=== PATIENT | male | born 1980 | race African-American/Black ===

== ENCOUNTER 2022-12-24 07:05 | Observation (INO) | payer BC, OTHER ==
[2022-12-24] MEDS ORDERED: ONDANSETRON 4 MG/2 ML VIAL IVPUSH ONE (08:04)
[2022-12-24] MEDS ORDERED: FAMOTIDINE 20 MG/50 ML IVPB 20 MG/50 ML MG IVPB ONE ×2 (08:04→08:44)
[2022-12-24] MEDS ORDERED: ONDANSETRON 4 MG/2 ML VIAL ONE (08:44)
[2022-12-24 09:19] LABS: HEMATOCRIT 58.1 % (35.4-49); HEMOGLOBIN 19.1 G/dL (11.7-16.9); MCH 29.6 pg (25.7-33.7); MCHC 32.9 g/dl (32.0-35.9); MEAN CELL VOLUME 90.1 fl (80-96); PLATELET COUNT 344.8 10^3/uL (134-434); RBC 6.45 10^6/uL (4.00-5.60); WHITE BLOOD COUNT 17.9 10^3/uL (4.0-10.8)
[2022-12-24] MEDS ORDERED: SODIUM CHLORIDE 1,000 ML IV STA ×2 (09:20→10:29)
[2022-12-24 09:27] LABS: ADD RBC MORPHOLOGY YES
[2022-12-24 10:20] LABS: VENOUS BASE EXCESS -2.2 mmol/L (-2-2); VENOUS O2 SATURATION 86.9 % (70-80); VENOUS PCO2 38.2 mmHg (38-52); VENOUS PH 7.383 (7.310-7.410)
[2022-12-24 10:23] LABS: POTASSIUM 3.9 mmol/L (3.5-5.1)
[2022-12-24 10:25] LABS: BLOOD UREA NITROGEN 26.3 mg/dL (7-18); CALCIUM 8.6 mg/dL (8.5-10.1)
[2022-12-24 10:26] LABS: ALBUMIN 3.2 g/dl (3.4-5.0)
[2022-12-24 10:28] LABS: CREATININE 2.8 mg/dL (0.55-1.3)
[2022-12-24] MEDS ORDERED: ACETAMINOPHEN 325 MG TABLET (FP) PO ONE (10:29)
[2022-12-24 10:36] LABS: PLATELET ESTIMATE ADEQUATE
[2022-12-24] MEDS ORDERED: ACETAMINOPHEN 325 MG TABLET (FP) ONE (10:59)
[2022-12-24] MEDS ORDERED: HALOPERIDOL LACTATE 5 MG/ML IM ONE ×2 (14:03→14:29)
[2022-12-24 14:34] LABS: HEMATOCRIT 54.1 % (35.4-49); HEMOGLOBIN 17.4 G/dL (11.7-16.9); MCH 29.3 pg (25.7-33.7); MCHC 32.2 g/dl (32.0-35.9); MEAN PLT VOLUME 8.7 fl (7.5-11.1); PLATELET COUNT 328.1 10^3/uL (134-434); RBC 5.94 10^6/uL (4.00-5.60); RDW 15.2 % (11.9-15.9)
[2022-12-24 15:09] LABS: PLATELET ESTIMATE ADEQUATE
[2022-12-24 15:10] LABS: EPITHELIAL CELLS RARE /hpf
[2022-12-24 15:11] LABS: URINE HYALINE CAST 0-3 /lpf
[2022-12-24 15:47] LABS: POTASSIUM 3.8 mmol/L (3.5-5.1)
[2022-12-24 15:49] LABS: ALBUMIN 2.7 g/dl (3.4-5.0); BLOOD UREA NITROGEN 26.7 mg/dL (7-18); CALCIUM 7.7 mg/dL (8.5-10.1)
[2022-12-24 15:52] LABS: CREATININE 2.4 mg/dL (0.55-1.3)
[2022-12-24 15:54] LABS: BILIRUBIN,TOTAL 0.6 mg/dL (0.2-1); TOT PROT 5.9 g/dl (6.4-8.2)
[2022-12-24] MEDS ORDERED: LACTATED RINGERS SOLUTION 1,000 ML/1,000 ML INFUS.BAG IV STA (16:12)
[2022-12-24] MEDS ORDERED: ONDANSETRON 4 MG/2 ML VIAL IVPUSH PRN (16:27)
[2022-12-24 18:14] VITALS: BMI 27.3
[2022-12-24] MEDS: LACTATED RINGERS SOLUTION 1,000 ML IV SCH (18:20)
[2022-12-24] MEDS ORDERED: TRIMETHOBENZAMIDE HCL 200MG/2ML INJ IM PRN (21:51)
[2022-12-24] MEDS: ATORVASTATIN CA 40 MG TABLET (FP) PO SCH (22:23)
[2022-12-25] MEDS: INSULIN SLIDING SCALE (NOVOLOG) 1 VIAL SQ SCH ×4 (06:17→21:27)
[2022-12-25] MEDS: ACETAMINOPHEN 325 MG TABLET (FP) PO PRN (06:27)
[2022-12-25 09:07] LABS: POTASSIUM 4.1 mmol/L (3.5-5.1)
[2022-12-25 09:09] LABS: BLOOD UREA NITROGEN 24.5 mg/dL (7-18); CALCIUM 8.2 mg/dL (8.5-10.1)
[2022-12-25 09:10] LABS: MAGNESIUM 1.9 mg/dL (1.8-2.4)
[2022-12-25 09:13] LABS: CREATININE 2.1 mg/dL (0.55-1.3); PHOSPHOROUS 3.2 mg/dL (2.5-4.9)
[2022-12-25] MEDS ORDERED: hydrALAZINE HCL 20 MG/ML VIAL IVPUSH ONE (09:15)
[2022-12-25 09:16] LABS: BASO % 0.3 % (0-2.0); EOS % 0.6 % (0-4.5); HEMATOCRIT 52.2 % (35.4-49); HEMOGLOBIN 16.8 GM/dL (11.7-16.9); LYMPH % 17.5 % (8-40); MCH 28.9 pg (25.7-33.7); MCHC 32.2 g/dl (32.0-35.9); MEAN CELL VOLUME 89.7 fl (80-96); MEAN PLT VOLUME 8.5 fl (7.5-11.1); MONO % 5.6 % (3.8-10.2); PLATELET COUNT 377 10^3/uL (134-434); RBC 5.82 M/mm3 (4.00-5.60); RDW 14.9 % (11.9-15.9); WHITE BLOOD COUNT 15.4 K/mm3 (4.0-10.0)
[2022-12-25] MEDS ORDERED: PANTOPRAZOLE SODIUM 40 MG VIAL IVPUSH ONE (09:16)
[2022-12-25] MEDS: HEPARIN NA (PORCINE) 5,000 UNITS/ML 1ML VIAL SQ SCH ×2 (09:37→21:26)
[2022-12-25] MEDS ORDERED: NIFEdipine 10 MG CAPSULE (FP) PO SCH (10:00)
[2022-12-25] MEDS ORDERED: PANTOPRAZOLE 40 MG TABLET PO SCH (10:00)
[2022-12-25] MEDS ORDERED: NIFEdipine E.R 60 MG TABLET PO SCH (11:15)
[2022-12-25] MEDS ORDERED: hydrALAZINE HCL 20 MG/ML VIAL IM PRN (12:48)
[2022-12-25] MEDS: LACTATED RINGERS SOLUTION 1,000 ML IV SCH (18:38)
[2022-12-25] MEDS: ATORVASTATIN CA 40 MG TABLET (FP) PO SCH (21:26)
[2022-12-25] MEDS: MELATONIN 5 MG TABLETS PO PRN (21:35)
[2022-12-26] MEDS: INSULIN SLIDING SCALE (NOVOLOG) 1 VIAL SQ SCH ×3 (06:47→21:27)
[2022-12-26 07:57] LABS: HEMATOCRIT 49.7 % (35.4-49); HEMOGLOBIN 16.8 GM/dL (11.7-16.9); MCH 29.5 pg (25.7-33.7); MCHC 33.8 g/dl (32.0-35.9); MEAN CELL VOLUME 87.3 fl (80-96); MEAN PLT VOLUME 8.7 fl (7.5-11.1); PLATELET COUNT 366 10^3/uL (134-434); RBC 5.69 M/mm3 (4.00-5.60); RDW 14.7 % (11.9-15.9); WHITE BLOOD COUNT 14.1 K/mm3 (4.0-10.0)
[2022-12-26] MEDS ORDERED: SODIUM CHLORIDE 500 ML IV STA (08:42)
[2022-12-26 09:09] LABS: BLOOD UREA NITROGEN 26.5 mg/dL (7-18); CALCIUM 8.2 mg/dL (8.5-10.1); CREATININE 2.3 mg/dL (0.55-1.3); POTASSIUM 3.7 mmol/L (3.5-5.1)
[2022-12-26] MEDS: PANTOPRAZOLE 40 MG TABLET PO SCH (10:13)
[2022-12-26] MEDS: HEPARIN NA (PORCINE) 5,000 UNITS/ML 1ML VIAL SQ SCH ×2 (10:14→21:26)
[2022-12-26] MEDS: METOPROLOL TARTRATE 50 MG TABLET (FP) PO SCH ×2 (10:14→21:27)
[2022-12-26 14:53] LABS: MAGNESIUM 1.9 mg/dL (1.8-2.4)
[2022-12-26 14:56] LABS: BILIRUBIN,DIRECT 0.2 mg/dL (0.0-0.2)
[2022-12-26 14:58] LABS: BILIRUBIN,TOTAL 0.9 mg/dL (0.2-1)
[2022-12-26] MEDS: ATORVASTATIN CA 40 MG TABLET (FP) PO SCH (21:26)
[2022-12-26] MEDS: MELATONIN 5 MG TABLETS PO PRN (21:26)
[2022-12-26] MEDS: ACETAMINOPHEN 325 MG TABLET (FP) PO PRN (21:27)
[2022-12-27] MEDS: LACTATED RINGERS SOLUTION 1,000 ML IV SCH (01:00)
[2022-12-27] MEDS: INSULIN SLIDING SCALE (NOVOLOG) 1 VIAL SQ SCH (06:52)
[2022-12-27] MEDS ORDERED: METOCLOPRAMIDE HCL 10 MG TABLET (FP) PO ONE (09:30)
[2022-12-27 09:36] VITALS: BP 148/98; PULSE 92; RESP 18; TEMP 98
[2022-12-27] MEDS: PANTOPRAZOLE 40 MG TABLET PO SCH (09:36)
[2022-12-27] MEDS: HEPARIN NA (PORCINE) 5,000 UNITS/ML 1ML VIAL SQ SCH (09:37)
[2022-12-27] MEDS: METOPROLOL TARTRATE 50 MG TABLET (FP) PO SCH (09:37)
== END 2022-12-27 09:52 | disposition home or self-care (01) ==
LOC: FER 07:05 → INTOOBSV 16:24 → FM/S 16:24
PROVIDERS: ADMIT Internal Medicine
PROC: 3E033GC Introduction of Other Therapeutic Substance into Peripheral Vein, Percutaneous Approach (ICD-10-PCS; principal; 2022-12-24)
PROC: 3E013VG Introduction of Insulin into Subcutaneous Tissue, Percutaneous Approach (ICD-10-PCS; 2022-12-24)
PROC: 3E0233Z Introduction of Anti-inflammatory into Muscle, Percutaneous Approach (ICD-10-PCS; 2022-12-24)
PROC: 3E033GC Introduction of Other Therapeutic Substance into Peripheral Vein, Percutaneous Approach (ICD-10-PCS; 2022-12-24)
PROC: 3E0337Z Introduction of Electrolytic and Water Balance Substance into Peripheral Vein, Percutaneous Approach (ICD-10-PCS; 2022-12-24)
DX: N17.9 Acute kidney failure, unspecified (principal); E11.9 Type 2 diabetes mellitus without complications; R80.9 Proteinuria, unspecified; N20.0 Calculus of kidney; I10 Essential (primary) hypertension; E86.0 Dehydration; R11.10 Vomiting, unspecified; R94.8 Abnormal results of function studies of other organs and systems; Z86.16 Personal history of COVID-19; Z72.0 Tobacco use
CPT/HCPCS: 36415; 71046-TC-FY; 74176-TC; 76775-TC; 80048; 80053; 80076; 81003; 81015; 82272; 82550; 82803; 82962; 83036; 83690; 83735; 84100; 84156; 84300; 84443; 85025; 85027; 85651; 86140; 86704; 87086; 87340; 87522; 93005; 99285-25; G0378; J1644

== ENCOUNTER 2024-01-08 04:57 | Observation (INO) | payer BC, OTHER ==
[2024-01-08] MEDS ORDERED: KETOROLAC TROMETHAMINE 30 MG/1 ML VIAL ONE (05:14)
[2024-01-08] MEDS ORDERED: ONDANSETRON 4 MG/2 ML VIAL ONE (05:14)
[2024-01-08] MEDS: SODIUM CHLORIDE 1,000 ML IV ONE (05:32)
[2024-01-08] MEDS: KETOROLAC TROMETHAMINE 30 MG/1 ML VIAL IVPUSH ONE (05:32)
[2024-01-08] MEDS: morphine CARPU-JECT 2 MG/1 ML DISP.SYRIN IVPUSH ONE (05:32)
[2024-01-08] MEDS: ONDANSETRON 4 MG/2 ML VIAL IVPB ONE (05:33)
[2024-01-08 06:23] LABS: HEMATOCRIT 50.7 % (35.4-49); HEMOGLOBIN 16.3 GM/dL (11.7-16.9); MCH 28.9 pg (25.7-33.7); MCHC 32.2 g/dl (32.0-35.9); MEAN CELL VOLUME 89.7 fl (80-96); MEAN PLT VOLUME 8.7 fl (7.5-11.1); PLATELET COUNT 405 10^3/uL (134-434); RBC 5.66 M/mm3 (4.00-5.60); RDW 15.4 % (11.9-15.9); WHITE BLOOD COUNT 26.2 K/mm3 (4.0-10.0)
[2024-01-08 06:43] LABS: CHLORIDE 113 mmol/L (98-107); POTASSIUM 4.1 mmol/L (3.5-5.1); SODIUM 148 mmol/L (136-145)
[2024-01-08 06:45] LABS: ALBUMIN 2.5 g/dl (3.4-5.0); ANION GAP 8 mmol/L (4-13); BLOOD UREA NITROGEN 28.6 mg/dL (7-18); CALCIUM 8.8 mg/dL (8.5-10.1); CO2 27 mmol/L (21-32)
[2024-01-08 06:46] LABS: GLUCOSE,RANDOM 220 mg/dL (74-106)
[2024-01-08 06:48] LABS: SGOT/AST 16 U/L (15-37); SGPT/ALT 22 U/L (13-61)
[2024-01-08 06:50] LABS: BILIRUBIN,TOTAL 0.7 mg/dL (0.2-1); TOT PROT 5.5 g/dl (6.4-8.2)
[2024-01-08 06:51] LABS: ALK PHOS 137 U/L (45-117)
[2024-01-08] MEDS ORDERED: morphine SULFATE 4 MG/ML VIAL ONE (07:15)
[2024-01-08] MEDS: morphine CARPU-JECT 4 MG/1 ML DISP.SYRIN IVPUSH ONE ×2 (07:22→12:44)
[2024-01-08] MEDS: ONDANSETRON 4 MG/2 ML VIAL IVPUSH ONE (07:53)
[2024-01-08] MEDS: SODIUM CHLORIDE 0.9% 1000 ML INFUS.BAG IV ONE (07:53)
[2024-01-08] MEDS ORDERED: amLODIPine BESYLATE 5 MG TABLET (FP) ONE (08:45)
[2024-01-08] MEDS: amLODIPine BESYLATE 10 MG TABLET (FP) PO ONE ×2 (08:45→14:54)
[2024-01-08 10:17] LABS: EPITHELIAL CELLS 0-5 /hpf
[2024-01-08] MEDS: LOSARTAN POTASSIUM 25 MG TABLET PO SCH (12:01)
[2024-01-08] MEDS: amLODIPine BESYLATE 10 MG TABLET (FP) PO SCH (12:02)
[2024-01-08] MEDS: METOCLOPRAMIDE HCL INJECTION 10 MG/2 ML VIAL IVPUSH SCH (12:02)
[2024-01-08] MEDS: DEXTROSE 5%-0.45% SALINE 1,000 ML IV SCH ×2 (12:02→15:18)
[2024-01-08] MEDS: hydrALAZINE HCL 20 MG/ML VIAL IVPUSH ONE (12:08)
[2024-01-08 14:45] VITALS: BMI 30.7
[2024-01-08] MEDS: NICOTINE 14 MG/24 HOURS TOPICAL PATCH TD SCH (14:54)
[2024-01-08] MEDS ORDERED: ACETAMINOPHEN 1000 MG/100 ML BAG IVPB PRN (15:00)
[2024-01-08] MEDS: hydrALAZINE HCL 20 MG/ML VIAL IVPB ONE (15:16)
[2024-01-08] MEDS: KETOROLAC TROMETHAMINE 30 MG/1 ML VIAL IVPUSH SCH (15:16)
[2024-01-08] MEDS: PANTOPRAZOLE SODIUM 40 MG VIAL IVPUSH SCH (15:16)
[2024-01-08] MEDS: HALOPERIDOL LACTATE 5 MG/ML IM ONE (15:17)
[2024-01-08] MEDS: INSULIN ASPART SLIDING SCALE (NOVOLOG) 1 VIAL SQ SCH (17:17)
[2024-01-08] MEDS: EMPAGLIFLOZIN (JARDIANCE) 10 MG TABLET PO SCH (20:00)
[2024-01-08] MEDS: ASPIRIN 81 MG CHEWABLE TABLETS PO ONE (20:00)
[2024-01-09 01:03] VITALS: BP 136/94; PULSE 93; RESP 18; TEMP 98.7
[2024-01-09] MEDS ORDERED: amLODIPine BESYLATE 10 MG TABLET (FP) PO SCH (10:00)
== END 2024-01-09 06:10 | disposition left against medical advice (07) ==
LOC: FER 04:57 → JER 04:57 → UNDOADMIN 07:41 → FM/S 07:41 → J4W 14:12 → UNDOADMOB 14:12 → INTOOBSV 14:12 → J4W 14:27
PROVIDERS: ADMIT Internal Medicine; ATTEND Internal Medicine
PROC: 3E013VG Introduction of Insulin into Subcutaneous Tissue, Percutaneous Approach (ICD-10-PCS; principal; 2024-01-08)
PROC: 3E033GC Introduction of Other Therapeutic Substance into Peripheral Vein, Percutaneous Approach (ICD-10-PCS; 2024-01-08)
PROC: 3E0337Z Introduction of Electrolytic and Water Balance Substance into Peripheral Vein, Percutaneous Approach (ICD-10-PCS; 2024-01-08)
PROC: 3E023NZ Introduction of Analgesics, Hypnotics, Sedatives into Muscle, Percutaneous Approach (ICD-10-PCS; 2024-01-08)
DX: F12.188 Cannabis abuse with other cannabis-induced disorder (principal); R11.2 Nausea with vomiting, unspecified; I10 Essential (primary) hypertension; E11.9 Type 2 diabetes mellitus without complications
CPT/HCPCS: 36415; 71045-TC-FY; 74176-TC; 76705-TC; 80053; 81003; 81015; 82550; 82962; 83605; 84484; 85027; 87086; 93005; 99285-25; G0378

== ENCOUNTER 2024-01-10 09:08 | Inpatient (IN) | payer BC, OTHER ==
[2024-01-10 09:28] VITALS: TEMP 98; BMI 31.6
[2024-01-10] MEDS ORDERED: ONDANSETRON 4 MG/2 ML VIAL IVPB ONE (09:56)
[2024-01-10] MEDS ORDERED: amLODIPine BESYLATE 10 MG TABLET (FP) ONE (10:17)
[2024-01-10] MEDS ORDERED: ONDANSETRON 4 MG/2 ML VIAL ONE ×2 (10:17→18:05)
[2024-01-10] MEDS: ONDANSETRON 4 MG/2 ML VIAL IVPUSH ONE (10:20)
[2024-01-10] MEDS: amLODIPine BESYLATE 10 MG TABLET (FP) PO ONE (10:20)
[2024-01-10] MEDS ORDERED: ACETAMINOPHEN INJECTION 100 ML ONE (10:20)
[2024-01-10] MEDS: ACETAMINOPHEN 1000 MG/100 ML BAG IVPB ONE (10:31)
[2024-01-10] MEDS: SODIUM CHLORIDE 0.9% 500 ML INFUS.BAG IV ONE ×2 (10:32→16:57)
[2024-01-10 10:54] LABS: BASO % 0.6 % (0-2.0); EOS % 1.4 % (0-4.5); HEMATOCRIT 50.8 % (35.4-49); HEMOGLOBIN 16.2 GM/dL (11.7-16.9); LYMPH % 11.4 % (8-40); MCH 28.6 pg (25.7-33.7); MEAN CELL VOLUME 89.5 fl (80-96); MEAN PLT VOLUME 8.8 fl (7.5-11.1); MONO % 6.6 % (3.8-10.2); PLATELET COUNT 365 10^3/uL (134-434); RBC 5.67 M/mm3 (4.00-5.60); RDW 14.9 % (11.9-15.9)
[2024-01-10 11:11] LABS: POTASSIUM 3.7 mmol/L (3.5-5.1)
[2024-01-10 11:16] LABS: CALCIUM 8.3 mg/dL (8.5-10.1)
[2024-01-10 11:17] LABS: ALBUMIN 2.4 g/dl (3.4-5.0); BLOOD UREA NITROGEN 21.9 mg/dL (7-18)
[2024-01-10 11:20] LABS: CREATININE 2.5 mg/dL (0.55-1.3)
[2024-01-10 11:22] LABS: BILIRUBIN,TOTAL 0.7 mg/dL (0.2-1); TOT PROT 5.6 g/dl (6.4-8.2)
[2024-01-10] MEDS ORDERED: HALOPERIDOL LACTATE 5 MG/ML ONE (12:25)
[2024-01-10] MEDS ORDERED: FAMOTIDINE 20 MG/50 ML IVPB 20 MG/50 ML MG IVPB ONE (12:26)
[2024-01-10] MEDS: FAMOTIDINE 20 MG/50 ML IVPB 20 MG/50 ML MG IVPB ONE (12:41)
[2024-01-10] MEDS: HALOPERIDOL LACTATE 5 MG/ML IM ONE (12:41)
[2024-01-10] MEDS: LOSARTAN 50MG/HCTZ 12.5MG 1 TAB PO ONE (12:41)
[2024-01-10] MEDS ORDERED: MAG HYDROX/AL HYDROX/SIMETH 30 ML UNIT-DOSE CUP ONE (13:05)
[2024-01-10] MEDS: MAG HYDROX/AL HYDROX/SIMETH -MYLANTA- ORAL SUSPENSION PO ONE (13:11)
[2024-01-10 13:52] LABS: EPI CELLS 13 /uL (0-25.1); HYALINE CASTS 2 /uL (0-3.1); URINE APPEARANCE CLEAR; URINE BACTERIA 7 /uL (0-1359); URINE BILIRUBIN NEGATIVE (NEGATIVE); URINE COLOR YELLOW; URINE GLUCOSE (UA) 3+ (NEGATIVE); URINE KETONE 1+ (NEGATIVE); URINE LEUK ESTERASE NEGATIVE (NEGATIVE); URINE NITRITE NEGATIVE (NEGATIVE); URINE PROTEIN 4+ (NEGATIVE); URINE RBC 23 /uL (0-23.9); URINE UROBILINOGEN 0.2 mg/dL (0.2-1.0); URINE WBC 14 /uL (0-25.8)
[2024-01-10 16:58] LABS: VENOUS BASE EXCESS -0.1 mmol/L (-2-2); VENOUS O2 SATURATION 77.2 % (70-80); VENOUS PCO2 45.6 mmHg (38-52); VENOUS PH 7.368 (7.310-7.410)
[2024-01-10] MEDS: INSULIN DRIP - PLEASE ORDER UNDER SETS NR ONE (17:02)
[2024-01-10] MEDS ORDERED: ACETAMINOPHEN 1000 MG/100 ML BAG IVPB PRN (17:23)
[2024-01-10] MEDS ORDERED: HYDROmorphone HCl 2 MG/ML VIAL ONE (17:49)
[2024-01-10] MEDS ORDERED: LOSARTAN POTASSIUM 25 MG TABLET ONE (17:50)
[2024-01-10] MEDS: HYDROmorphone HCl 2 MG/ML VIAL IVPUSH ONE (18:04)
[2024-01-10] MEDS: LOSARTAN POTASSIUM 25 MG TABLET PO SCH (18:04)
[2024-01-10] MEDS: LACTATED RINGERS SOLUTION 1,000 ML/1,000 ML INFUS.BAG IV SCH (18:23)
[2024-01-10] MEDS: ONDANSETRON 4 MG/2 ML VIAL IVPUSH PRN (18:24)
[2024-01-10] MEDS ORDERED: LABETALOL HCL 20 MG/4 ML VIAL ONE (22:13)
[2024-01-10] MEDS ORDERED: HEPARIN NA (PORCINE) 5,000 UNITS/ML 1ML VIAL ONE (22:13)
[2024-01-10] MEDS: LABETALOL HCL 5 MG/1 ML (100MG/20 ML VIAL) IVPUSH ONE (22:29)
[2024-01-10] MEDS: HEPARIN NA (PORCINE) 5,000 UNITS/ML 1ML VIAL SQ SCH (22:29)
[2024-01-10] MEDS: INSULIN ASPART SLIDING SCALE (NOVOLOG) 1 VIAL SQ SCH (22:30)
[2024-01-10 22:47] VITALS: BP 163/115; RESP 17
[2024-01-10 22:49] VITALS: PULSE 95
[2024-01-10] MEDS ORDERED: MAG HYDROX/AL HYDROX/SIMETH 30 ML UNIT-DOSE CUP PO ONE (23:21)
[2024-01-11] MEDS ORDERED: PANTOPRAZOLE SODIUM 40 MG VIAL IVPUSH SCH (10:00)
== END 2024-01-11 00:14 | disposition left against medical advice (07) | DRG 305 ==
LOC: JER 09:08 → JERBED 16:29
PROVIDERS: ADMIT Internal Medicine; ATTEND Internal Medicine
DX: I16.1 Hypertensive emergency (principal); R11.2 Nausea with vomiting, unspecified; I12.9 Hypertensive chronic kidney disease with stage 1 through stage 4 chronic kidney disease, or unspecified chronic kidney disease; E86.0 Dehydration; E11.22 Type 2 diabetes mellitus with diabetic chronic kidney disease; N18.9 Chronic kidney disease, unspecified
CPT/HCPCS: 0241U-QW; 36415; 74176-TC; 76705-TC; 80053; 81003; 82010; 82803; 82962; 83690; 84484; 85025; 87086; 93005; 93010; 99285-25; J0131; J1644

== ENCOUNTER 2024-06-19 07:50 | Inpatient (IN) | payer BC, OTHER ==
[2024-06-19] MEDS ORDERED: FAMOTIDINE 20 MG/50 ML IVPB 20 MG/50 ML MG IVPB ONE (08:30)
[2024-06-19] MEDS ORDERED: ONDANSETRON 4 MG/2 ML VIAL ONE (08:30)
[2024-06-19] MEDS ORDERED: ACETAMINOPHEN INJECTION 100 ML ONE (08:30)
[2024-06-19] MEDS: ACETAMINOPHEN 1000 MG/100 ML BAG IVPB ONE (08:48)
[2024-06-19] MEDS: SODIUM CHLORIDE 0.9% 500 ML INFUS.BAG IV ONE (08:48)
[2024-06-19] MEDS: FAMOTIDINE 20 MG/50 ML IVPB 20 MG/50 ML MG IVPB ONE (08:49)
[2024-06-19] MEDS: ONDANSETRON 4 MG/2 ML VIAL IVPUSH ONE (08:49)
[2024-06-19 08:51] LABS: HEMATOCRIT 54.5 % (40.1-51.0); HEMOGLOBIN 17.9 g/dL (13.7-17.5); MCHC 32.8 g/dl (32.3-36.5); MEAN CELL VOLUME 89.9 fl (79.0-92.2); MEAN PLT VOLUME 10.2 fl (9.4-12.4); PLATELET COUNT 419 x10^3/uL (163-337)
[2024-06-19 09:17] LABS: ALBUMIN 3.6 g/dl (3.4-5.0); BILIRUBIN,TOTAL 0.6 mg/dl (0.2-1); CALCIUM 8.9 mg/dl (8.5-10.1); CREATININE 3.1 mg/dl (0.6-1.3); MAGNESIUM 2.1 mg/dL (1.8-2.4); POTASSIUM 4.5 mmol/L (3.5-5.1); TOT PROT 5.9 g/dl (6.4-8.2)
[2024-06-19] MEDS ORDERED: morphine SULFATE 4 MG/ML VIAL ONE (10:43)
[2024-06-19] MEDS: morphine CARPU-JECT 4 MG/1 ML DISP.SYRIN IVPUSH ONE (10:51)
[2024-06-19 13:09] LABS: HCV DIAGNOSTIC IN-HOUSE W/RFLX NON-REACTIVE (NONREACTIVE); HIV INTERPRETATION NEGATIVE (NEGATIVE)
[2024-06-19] MEDS ORDERED: METOCLOPRAMIDE HCL INJECTION 10 MG/2 ML VIAL IVPUSH PRN (13:35)
[2024-06-19] MEDS ORDERED: ACETAMINOPHEN 1000 MG/100 ML BAG IVPB PRN (13:42)
[2024-06-19] MEDS: LABETALOL HCL 200 MG TABLET (FP) PO SCH (13:48)
[2024-06-19] MEDS: LACTATED RINGERS SOLUTION 1,000 ML/1,000 ML INFUS.BAG IV SCH (13:49)
[2024-06-19] MEDS: PANTOPRAZOLE SODIUM 40 MG VIAL IVPUSH SCH (13:50)
[2024-06-19] MEDS: amLODIPine BESYLATE 5 MG TABLET (FP) PO SCH (14:04)
[2024-06-19 17:11] VITALS: BMI 28.8
[2024-06-19] MEDS: INSULIN ASPART SLIDING SCALE (NOVOLOG) 1 VIAL SQ SCH (18:26)
[2024-06-20 08:12] LABS: ABSOLUTE IMMATURE GRANULOCYTES 0.16 x10^3/uL (0.0-0.031); BASOPHILS # 0.05 x10^3/uL (0.01-0.08); EOSINOPHIL % 1.5 % (0.8-7.0); EOSINOPHILS # 0.23 x10^3/uL (0.04-0.54); HEMATOCRIT 44.6 % (40.1-51.0); HEMOGLOBIN 14.7 g/dL (13.7-17.5); MEAN CELL VOLUME 90.8 fl (79.0-92.2); MEAN PLT VOLUME 10.5 fl (9.4-12.4); MONOCYTE # 0.91 x10^3/uL (0.30-0.82); MONOCYTE % 6.1 % (5.3-12.2); PLATELET COUNT 320 x10^3/uL (163-337); RDW 14.1 % (12.1-15.9)
[2024-06-20 09:08] LABS: ALBUMIN 2.8 g/dl (3.4-5.0); BILIRUBIN,TOTAL 0.6 mg/dl (0.2-1); CALCIUM 7.8 mg/dl (8.5-10.1); CREATININE 2.7 mg/dl (0.6-1.3); POTASSIUM 4.4 mmol/L (3.5-5.1); TOT PROT 4.4 g/dl (6.4-8.2)
[2024-06-20 10:06] LABS: URINE AMPHETAMINES NEGATIVE (NEGATIVE); URINE BARBITURATES NEGATIVE (NEGATIVE)
[2024-06-20 10:07] LABS: COCAINE, UR NEGATIVE (NEGATIVE); METHADONE, UR NEGATIVE (NEGATIVE); PHENCYCLIDINE,URINE NEGATIVE (NEGATIVE); URINE BENZODIAZEPINES NEGATIVE (NEGATIVE)
[2024-06-20 10:09] LABS: OPIATES, URI POSITIVE (NEGATIVE)
[2024-06-20 18:34] VITALS: BP 162/104; PULSE 82; RESP 17; TEMP 98.2
== END 2024-06-20 19:08 | disposition home or self-care (01) | DRG 392 ==
LOC: FER 07:50 → FM/S 10:36
PROVIDERS: ATTEND Internal Medicine
DX: R11.2 Nausea with vomiting, unspecified (principal); N17.9 Acute kidney failure, unspecified; I12.9 Hypertensive chronic kidney disease with stage 1 through stage 4 chronic kidney disease, or unspecified chronic kidney disease; N18.32 Chronic kidney disease, stage 3b; F12.10 Cannabis abuse, uncomplicated; E78.5 Hyperlipidemia, unspecified; E11.21 Type 2 diabetes mellitus with diabetic nephropathy
CPT/HCPCS: 36415; 80053; 80061; 80307; 82962; 83036; 83735; 85025; 86803; 87389; 99285-25; J0131